=== PATIENT | female | born 1965 | race Caucasian/White ===

== ENCOUNTER 2025-03-22 12:02 | Day surgery (SDC) | payer OTHER, SELFPAY ==
--- NOTE | 2025-03-22 11:58 | PM.OP.COLON ---
Operative Date/Time/Diagnoses Date of procedure: 03/22/25 Time of procedure: 13:30 Pre-op diagnosis: See indication and findings Post-op diagnosis: same Procedure & Clinicians Study performed: Colonoscopy Same procedure(s) as scheduled: Yes Indications: Screening Surgeon: Channing Bowden Anesthesia Type: Other Procedure Notes Procedure in detail: After informed consent was obtained the patient was placed in left lateral decubitus position. The video colonoscope was introduced the rectum slowly advanced cecum. Preparation was good. On slow withdrawal mucosa was carefully examined. The scope was removed. The patient tolerated procedure well. Blood loss none Complications none Sedation mac Findings 1. Mild internal hemorrhoids 2. Otherwise negative colonoscopy to cecum Patient should have follow-up colonoscopy in 5-10 years
[2025-03-22 12:25] VITALS: BP 156/71; PULSE 69; RESP 16; TEMP 36.3; O2SAT 100
--- NOTE | 2025-03-22 12:27 | P.HP_ITS ---
History of Present Illness History of Present Illness Date Patient Seen: 03/22/25 Chief complaint: Screening Colonoscopy Narrative: History of colon polyps need for follow-up colonoscopy Meds Home Medications and Allergies Home Medications ?Medication ?Instructions ?Recorded ?Confirmed ?Type sodium,potassium,mag sulfates 17.5 See Rx Instructions PO .COMPLEX 02/13/25 Rx gram-3.13 gram-1.6 gram oral soln #354 mL (Suprep Bowel Prep Kit) Exam Narrative Exam Narrative: Oropharynx free of lesions Chest clear to auscultation percussion Cardiac exam reveals no S3 or murmur Assessment & Plan Assessment & Plan narrative: History of colon polyps need for follow-up colonoscopy. Risks, benefits, alternatives have been explained. Time-Based Coding :: [TOTAL MINUTES] spent with patient and on the chart (including review of chart, obtaining history, exam, reviewing outside data, placing orders, documenting exam and treatment plan, and counseling patient) on [DATE]. [employer] Document charge(s): No
[2025-03-22] MEDS: LACTATED RINGERS 1,000 ML 42 ML IV (12:40)
[2025-03-22 13:35] VITALS: BP 116/58; PULSE 72; RESP 12; TEMP 36.4; O2SAT 95
[2025-03-22 13:41] VITALS: BP 116/62; PULSE 67; RESP 12; O2SAT 94
== END 2025-03-22 13:51 | disposition home or self-care (01) ==
PROVIDERS: PCP Registered Nurse; Referring Provider Registered Nurse; Visit Provider Internal Medicine Gastroenterology
PROC: 0DJD8ZZ Inspection of Lower Intestinal Tract, Via Natural or Artificial Opening Endoscopic (ICD-10-PCS; CPT 45378; principal; 2025-03-22 12:30)
DX: Z12.11 Encounter for screening for malignant neoplasm of colon (principal); K64.8 Other hemorrhoids
CPT/HCPCS: 45378; J2704